=== PATIENT | female | born 1965 | race Caucasian/White ===

== ENCOUNTER 2016-09-22 11:31 | Emergency (ER) | payer OTHER ==
[~2016-09-22] VITALS: Ht 162.6 cm; Wt 81.8 kg
[~2016-09-22 11:31] MED LIST: ADVAIR 500/501 DISK IH; ALBUTEROL SULF8.5 GM IH; BREO ELLIPTA I1 EACH IH; CAPSAICIN60 GM TP; CARDIZEM30 MG PO; CYCLOBENZAPRINE10 MG PO; DITROPAN5 MG PO; FLEXERIL10 MG PO; FLUVOXAMINE MA100 MG PO; HYDROCORTISONE30 G2 TP; LEVAQUIN750 MG PO; LIDOCAINE700 MG TD; LIPITOR40 MG PO; LYRICA50 MG PO; MELOXICAM7.5 MG PO; MINIPRESS2 MG PO; MOBIC7.5 MG PO; NICOTINE PATCH1 EAC2 TD; NORCO 5/3251 TABLET PO; OXYBUTYNIN CHLOR5 M1 PO; OXYCODONE HCL5 MG PO; PROMETHAZINE12.5 M1 PO; PROTONIX40 MG PO; PROVENTIL,2.5 MG/3 M IH; PROZAC10 MG PO; QUETIAPINE FUM100 MG PO; RANITIDINE HCL150 M1 PO; SEROQUEL XR300 MG PO; SEROQUEL200 MG PO; TOPAMAX25 MG PO; TORADOL10 MG PO; VESICARE10 MG PO; XANAX1 MG PO; XANAX2 MG PO; ZANAFLEX4 MG PO; ZOFRAN4 MG PO
[2016-09-22 13:55] LABS: HEMATOCRIT 38.9 % (36.0-46.0); MCH 30.8 PG (29.0-34.0); MCHC 34.4 G/DL (30.0-36.0); MCV 89.4 FL (83-99); MEAN PLAT.VOLUME 9.5 uM^3 (9.5-12.4); PLATELET COUNT 226 K/uL (156-360); RBC DIS.WIDTH-CV 12.6 % (11.8-14.6); RBC DIS.WIDTH-SD 40.3 % (39-53); RED BLOOD COUNT 4.35 M/uL (3.80-5.20); WHITE BLOOD COUNT 10.9 K/uL (4.1-10.2)
[2016-09-22 14:11] LABS: CHLORIDE 101 mEq/L (99-109); POTASSIUM 4.2 mEq/L (3.7-5.4); SODIUM 135 mEq/L (136-147)
[2016-09-22 14:13] LABS: GLUCOSE 113 mg/dL (70-99)
[2016-09-22 14:14] LABS: ANION GAP 12 MEQ/L (2-14)
[2016-09-22 14:17] LABS: GFR ESTIMATE (CALCULATED) > 59 mL/min/
[2016-09-22 14:18] LABS: UREA NITROGEN (BUN) 12 mg/dL (9-23)
[2016-09-22] MEDS ORDERED: PERCOCET 5/31 TABLET PO (16:15)
[2016-09-22] MEDS ORDERED: ZOFRAN ODT4 MG PO (16:15)
[2016-09-22 17:08] VITALS: BP 142/87
== END 2016-09-22 17:09 | disposition home or self-care (01) ==
LOC: EME 11:31
PROVIDERS: Nurse Practitioner Family
PROC: 2W3QX1Z Immobilization of Right Lower Leg using Splint (ICD-10-PCS; principal; 2016-09-22)
DX: S92.001A Unspecified fracture of right calcaneus, initial encounter for closed fracture (principal); S82.841A Displaced bimalleolar fracture of right lower leg, initial encounter for closed fracture; W10.9XXA Fall (on) (from) unspecified stairs and steps, initial encounter; Y93.E2 Activity, laundry; Y92.009 Unspecified place in unspecified non-institutional (private) residence as the place of occurrence of the external cause; R11.2 Nausea with vomiting, unspecified; I10 Essential (primary) hypertension; G89.29 Other chronic pain; J44.9 Chronic obstructive pulmonary disease, unspecified; Z79.891 Long term (current) use of opiate analgesic; F17.200 Nicotine dependence, unspecified, uncomplicated
CPT/HCPCS: 73610; 73630; 73700; 80048; 85027; 99281; 99285; J1885; J2270; J2405; J3010; J7030

== ENCOUNTER 2016-11-16 10:08 | Emergency (ER) | payer OTHER ==
[~2016-11-16] VITALS: Ht 162.6 cm; Wt 86.3 kg
[~2016-11-16 10:08] MED LIST changes: +PERCOCET 5/31 TABLET PO; +ZOFRAN ODT4 MG PO
[2016-11-16 10:41] LABS: HEMATOCRIT 47.6 % (36.0-46.0); MCH 28.9 PG (29.0-34.0); MCHC 33.4 G/DL (30.0-36.0); MCV 86.5 FL (83-99); MEAN PLAT.VOLUME 11.4 uM^3 (9.5-12.4); PLATELET COUNT 256 K/uL (156-360); RBC DIS.WIDTH-CV 13.6 % (11.8-14.6); RBC DIS.WIDTH-SD 43.1 % (39-53); WHITE BLOOD COUNT 11.8 K/uL (4.1-10.2)
[2016-11-16 10:52] LABS: CHLORIDE 102 mEq/L (99-109); POTASSIUM 3.2 mEq/L (3.7-5.4); SODIUM 138 mEq/L (136-147)
[2016-11-16 10:55] LABS: GLUCOSE 118 mg/dL (70-99)
[2016-11-16 10:56] LABS: ANION GAP 12 MEQ/L (2-14); TOTAL BILIRUBIN 0.6 mg/dL (0.0-1.0)
[2016-11-16 10:58] LABS: ALKALINE PHOSPHATASE 87 IU/L (3-129); GFR ESTIMATE (CALCULATED) > 59 mL/min/
[2016-11-16 10:59] LABS: UREA NITROGEN (BUN) 12 mg/dL (9-23)
[2016-11-16 11:07] LABS: QUANTITATIVE HCG < 4.0 MIU/ML
[2016-11-16] MEDS ORDERED: ZOFRAN ODT4 MG PO (14:51)
[2016-11-16] MEDS ORDERED: AUGMENTIN875 MG PO (14:51)
[2016-11-16] MEDS ORDERED: PREDNISONE50 MG PO (14:51)
[2016-11-16 15:58] VITALS: BP 175/92
== END 2016-11-16 16:00 | disposition home or self-care (01) ==
LOC: EME 10:08
DX: K52.9 Noninfective gastroenteritis and colitis, unspecified (principal); J44.1 Chronic obstructive pulmonary disease with (acute) exacerbation; F17.200 Nicotine dependence, unspecified, uncomplicated; K21.9 Gastro-esophageal reflux disease without esophagitis; I10 Essential (primary) hypertension; Z88.1 Allergy status to other antibiotic agents
CPT/HCPCS: 71010; 80053; 81003; 84702; 85027; 99281; 99285; J1885; J2270; J2405; J2765; J2930

== ENCOUNTER 2017-05-05 14:00 | Emergency (ER) | payer OTHER ==
[~2017-05-05] VITALS: Ht 162.6 cm; Wt 82.6 kg
[~2017-05-05 14:00] MED LIST changes: +AUGMENTIN875 MG PO; +PREDNISONE50 MG PO
[2017-05-05 14:53] LABS: HEMATOCRIT 40.4 % (36.0-46.0); MCH 31.4 PG (29.0-34.0); MCHC 34.7 G/DL (30.0-36.0); MCV 90.6 FL (83-99); MEAN PLAT.VOLUME 9.4 uM^3 (9.5-12.4); PLATELET COUNT 338 K/uL (156-360); RBC DIS.WIDTH-CV 12.3 % (11.8-14.6); RBC DIS.WIDTH-SD 40.5 % (39-53); RED BLOOD COUNT 4.46 M/uL (3.80-5.20); WHITE BLOOD COUNT 6.1 K/uL (4.1-10.2)
[2017-05-05 15:03] LABS: CHLORIDE 100 mEq/L (99-109); POTASSIUM 3.3 mEq/L (3.7-5.4); SODIUM 138 mEq/L (136-147)
[2017-05-05 15:05] LABS: GLUCOSE 102 mg/dL (70-99)
[2017-05-05 15:07] LABS: ANION GAP 14 MEQ/L (2-14); TOTAL BILIRUBIN 0.3 mg/dL (0.0-1.0)
[2017-05-05 15:09] LABS: ALKALINE PHOSPHATASE 83 IU/L (3-129); GFR ESTIMATE (CALCULATED) > 59 mL/min/
[2017-05-05 15:10] LABS: UREA NITROGEN (BUN) 3 mg/dL (9-23)
[2017-05-05 15:34] LABS: ADD MIUA? YES; BILIRUBIN NEGATIVE; BLOOD SMALL; COLOR YELLOW ((YELLOW)); GLUCOSE (STRIP) NEGATIVE; KETONES 5; LEUKOCYTES LARGE; NITRITE NEGATIVE; PROTEIN (STRIP) NEGATIVE; SPECIFIC GRAVITY 1.009 (1.000-1.030)
[2017-05-05 15:43] LABS: BACTERIA RARE /HPF; CALCIUM OXALATE CRYSTALS 1+ /HPF; EPITHELIAL CELLS 1+ /HPF; HYALINE CASTS 0-5 /LPF; MUCUS NONE SEEN /LPF
[2017-05-05] MEDS ORDERED: MACROBID100 MG PO (16:14)
[2017-05-05] MEDS ORDERED: DIFLUCAN150 MG PO (16:14)
[2017-05-05] MEDS ORDERED: PROMETHAZINE HC25 M1 PO (16:14)
[2017-05-05] MEDS ORDERED: HEMMOREX-HC25 MG PR (16:14)
[2017-05-05 16:45] VITALS: BP 120/94
== END 2017-05-05 16:46 | disposition home or self-care (01) ==
LOC: EME 14:00
PROVIDERS: Physician Assistant
DX: N39.0 Urinary tract infection, site not specified (principal); R11.2 Nausea with vomiting, unspecified; J44.9 Chronic obstructive pulmonary disease, unspecified; F17.200 Nicotine dependence, unspecified, uncomplicated; I10 Essential (primary) hypertension; K21.9 Gastro-esophageal reflux disease without esophagitis; F32.9 Major depressive disorder, single episode, unspecified; F41.9 Anxiety disorder, unspecified
CPT/HCPCS: 80053; 81003; 85027; 87077; 87086; 87186; 99281; 99284; J1100; J2405; J7030